=== PATIENT | male | born 1985 | race Two or more races ===

== ENCOUNTER 2024-01-23 12:33 | Inpatient (IN) | payer OTHER ==
[~2024-01-23] VITALS: Ht 185.4 cm; Wt 104.5 kg
[2024-01-23 13:17] LABS: HEMATOCRIT 45.1 % (42.0-52.0); HEMOGLOBIN 14.1 g/dl (13.5-17.5); MEAN CORPUSCULAR HEMOGLOBIN 25.7 pg (27.0-33.0); MEAN CORPUSCULAR HGB CONC 31.3 g/dl (32.0-36.5); MEAN CORPUSCULAR VOLUME 82.1 fl (80.0-96.0); PLATELET COUNT, AUTOMATED 227 10^3/uL (150-450); RED BLOOD COUNT 5.49 10^6/uL (4.30-6.10)
[2024-01-23 13:33] LABS: AMPHETAMINES LEVEL URINE NEGATIVE (NEGATIVE)
[2024-01-23 13:37] LABS: BARBITURATES URINE NEGATIVE (NEGATIVE); BENZODIAZEPINES URINE NEGATIVE (NEGATIVE); CANNABINOIDS URINE NEGATIVE (NEGATIVE); COCAINE METABOLITE URINE NEGATIVE (NEGATIVE); METHADONE URINE NEGATIVE (NEGATIVE); OPIATES URINE NEGATIVE (NEGATIVE); PHENCYCLIDINE URINE NEGATIVE (NEGATIVE)
[2024-01-23 13:48] LABS: ETHYL ALCOHOL (ETHANOL) < 0.003 % (0.000-0.010)
[2024-01-23 13:50] LABS: ALBUMIN 3.8 G/DL (3.2-5.2); ALKALINE PHOSPHATASE 56 U/L (46-116); ALT/SGPT 19 U/L (7.0-40); AST/SGOT 20 U/L (<34); BILIRUBIN,DIRECT 0.2 MG/DL (<0.4); BILIRUBIN,TOTAL 0.8 MG/DL (0.3-1.2); BLOOD UREA NITROGEN 11 MG/DL (9-23); CALCIUM LEVEL 9.7 MG/DL (8.5-10.1); CARBON DIOXIDE LEVEL 28 MMOL/L (20-31); CHLORIDE LEVEL 108 MMOL/L (98-107); CREATININE FOR GFR 0.77 MG/DL (0.70-1.30); GLOMERULAR FILTRATION RATE > 60.0 (>60); GLUCOSE, FASTING 97 MG/DL (60-100); POTASSIUM SERUM 4.9 MMOL/L (3.5-5.1); SALICYLATE LEVEL < 3.0 MG/DL (<30); SODIUM LEVEL 141 MMOL/L (136-145); TOTAL PROTEIN 8.4 G/DL (5.7-8.2)
[2024-01-23 13:52] LABS: THYROID STIMULATING HORMONE 1.185 uIU/ML (0.55-4.78)
[2024-01-23] MEDS ORDERED: traZODone 50 MG TAB PO PRN (14:35)
[2024-01-23] MEDS ORDERED: MAALOX 30 ML SUSP *UDC PO PRN (14:35)
[2024-01-23] MEDS ORDERED: MOM 30ML SUSPENSION UDC PO PRN (14:35)
[2024-01-23] MEDS ORDERED: diphenhydrAMINE 25MG CAP PO PRN (14:35)
[2024-01-23] MEDS ORDERED: ACETAMINOPHEN TAB 650MG DOSE (2X325MG) PO PRN (14:35)
[2024-01-23] MEDS ORDERED: IBUPROFEN 400MG TAB PO PRN (14:35)
[2024-01-23] MEDS ORDERED: HYDR50TA70 PO ×2 (15:10→15:15)
[2024-01-23] MEDS ORDERED: FLUO40CA PO (15:10)
[2024-01-23] MEDS ORDERED: HOME MED LIST COMPLETE! XX SCH (15:15)
[2024-01-23] MEDS: hydrOXYzine 50 MG TAB PO ONE (20:11)
[2024-01-24] MEDS ORDERED: MAALOX 30 ML SUSP *UDC PO PRN (12:45)
[2024-01-24] MEDS ORDERED: MOM 30ML SUSPENSION UDC PO PRN (12:45)
[2024-01-24] MEDS ORDERED: ACETAMINOPHEN TAB 650MG DOSE (2X325MG) PO PRN (12:45)
[2024-01-24] MEDS ORDERED: IBUPROFEN 400MG TAB PO PRN (12:45)
[2024-01-24 15:21] VITALS: BP 129/90; TEMP 96.8; O2SAT 99
[2024-01-24] MEDS: diphenhydrAMINE 25MG CAP PO PRN (20:13)
[2024-01-24] MEDS: traZODone 50 MG TAB PO PRN (20:14)
[2024-01-25] MEDS: FLUZONE VACCINE TRIVALENT PF(2024-25) 0.5ML SYRINGE IM.IMMUN ONE (09:24)
[2024-01-25] MEDS: busPIRone 5 MG TAB PO SCH (11:10)
[2024-01-25] MEDS: FLUoxetine 20MG CAP PO SCH (11:11)
[2024-01-25 16:34] VITALS: BP 121/69; TEMP 97.7; O2SAT 98
[2024-01-25 20:22] VITALS: BP 136/81
[2024-01-25] MEDS: PRAZOSIN 1 MG CAP PO SCH (20:22)
[2024-01-26 06:33] VITALS: BP 96/61; TEMP 97.6; O2SAT 100
[2024-01-26] MEDS ORDERED: PRAZ1CAP PO (09:56)
[2024-01-26] MEDS ORDERED: TRAZ-252 PO (09:56)
[2024-01-26] MEDS ORDERED: BUSP5TA PO (09:56)
== END 2024-01-26 11:14 | disposition home or self-care (01) | DRG 881 ==
LOC: EDBD 12:33 → M ED 12:33 → M ED INP 14:35 → M PSY 01-24 14:54
PROVIDERS: ADMIT Psychiatry & Neurology Psychiatry; ATTEND Psychiatry & Neurology Psychiatry
DX: F32.A Depression, unspecified (principal); F41.9 Anxiety disorder, unspecified; F43.10 Post-traumatic stress disorder, unspecified; Z91.82 Personal history of military deployment; Z81.8 Family history of other mental and behavioral disorders; Z79.899 Other long term (current) drug therapy; Z76.5 Malingerer [conscious simulation]

== ENCOUNTER → 2024-04-09 | Outpatient (REF) | payer OTHER ==
[~2024-04-09] MED LIST: BUSP5TA PO; FLUO40CA PO; HYDR50TA70 PO; PRAZ1CAP PO; TRAZ-252 PO
[2024-04-09 11:34] LABS: SEMEN APPEARANCE OPAQUE (OPAQUE); SEMEN VOLUME 0.8 ml (2.0-5.0)
[2024-04-09 11:35] LABS: SEMEN VISCOSITY LIQUID (LIQUID); SEMEN pH 8.5 (7.0-8.0); SPERM CONCENTRATION 6.8 M/ml (>=15.0); WBC CONCENTRATION <=1 M/ml (<=1 M/ml)
== END ==
LOC: M LAB REF 11:15
PROVIDERS: ATTEND Family Medicine
DX: N46.9 Male infertility, unspecified (principal)

== ENCOUNTER → 2024-08-20 | Outpatient (REF) | payer OTHER ==
[2024-08-20 14:16] LABS: SEMEN APPEARANCE OPAQUE (OPAQUE); SEMEN VISCOSITY LIQUID (LIQUID); WBC CONCENTRATION <=1 M/ml (<=1 M/ml)
[2024-08-20 14:18] LABS: SPERM CONCENTRATION 15.4 M/ml (>=15.0)
== END ==
LOC: M LAB REF 13:28
PROVIDERS: ATTEND Specialist
DX: N46.9 Male infertility, unspecified (principal)